=== PATIENT | female | born 2000 | race Caucasian/White ===

== ENCOUNTER 2022-07-05 07:49 | Outpatient (CLI) | payer BC | END 2022-07-05 07:50 | disposition home or self-care (01) | LOC: ULT 07:49 | PROVIDERS: ATTEND Family Medicine | DX: R10.84 Generalized abdominal pain (principal); K86.89 Other specified diseases of pancreas; N28.89 Other specified disorders of kidney and ureter | CPT/HCPCS: 76700 ==

== ENCOUNTER 2022-07-26 09:40 | Outpatient (CLI) | payer BC ==
[~2022-07-26 09:40] MED LIST: Magnevist 469MG/ML 20 ML VIAL ONE
== END 2022-07-26 09:41 | disposition home or self-care (01) ==
LOC: BICMRI 09:40
PROVIDERS: ATTEND Family Medicine
DX: K86.89 Other specified diseases of pancreas (principal); N28.89 Other specified disorders of kidney and ureter; R93.89 Abnormal findings on diagnostic imaging of other specified body structures; D18.03 Hemangioma of intra-abdominal structures
CPT/HCPCS: 74183; A9579